=== PATIENT | female | born 1975 | race Caucasian/White ===

== ENCOUNTER 2016-07-28 12:51 | Emergency (ER) | payer MEDICARE, MEDICAID ==
[~2016-07-28] VITALS: Ht 160 cm; Wt 63.6 kg
[~2016-07-28 12:51] MED LIST: AMOXICILLIN 8751 TAB PO; DEPO-SUBQ104 MG/0.6 SC; LORTAB 5/500 501 TAB PO; NAPROSYN500 MG PO; NO HOME MEDICATIONS; NORCO 325 MG-51 TAB PO; PRENATAL1 TA2 PO; PROVERA 10MG10 MG PO; ROBAXIN 50500 MG/TAB PO; ROBAXIN 75750 MG/TAB PO; ULTRAM 50MG TAB50 MG PO; WELLBUTRIN 75MG75 MG PO; XANAX 0.5MG0.5 MG PO; ZOFRAN 4MG T4 MG/TAB PO
[2016-07-28 12:55] VITALS: BP 124/72; PULSE 84; TEMP 99.5
[2016-07-28] MEDS ORDERED: SEROQUEL 2525 MG/TAB PO (12:58)
== END 2016-07-28 13:55 | disposition home or self-care (01) ==
LOC: COL.ER 12:51
DX: S50.02XA Contusion of left elbow, initial encounter (principal); W00.0XXA Fall on same level due to ice and snow, initial encounter

== ENCOUNTER 2016-10-20 20:10 | Emergency (ER) | payer MEDICARE, MEDICAID ==
[~2016-10-20] VITALS: Ht 160 cm; Wt 65.9 kg
[~2016-10-20 20:10] MED LIST changes: +SEROQUEL 2525 MG/TAB PO
[2016-10-20 20:16] VITALS: BP 137/89; PULSE 90; TEMP 98.7
[2016-10-20] MEDS ORDERED: DEPAKOTE500 MG PO (20:19)
[2016-10-20] MEDS ORDERED: ESTRACE2 MG PO (20:19)
[2016-10-20] MEDS ORDERED: FLEXERIL 1010 MG/TAB PO (22:51)
== END 2016-10-20 22:58 | disposition home or self-care (01) ==
LOC: COL.ER 20:10
DX: M54.2 Cervicalgia (principal); M62.838 Other muscle spasm; J02.9 Acute pharyngitis, unspecified
CPT/HCPCS: J1885

== ENCOUNTER 2017-03-26 22:00 | Emergency (ER) | payer MEDICARE, MEDICAID ==
[~2017-03-26] VITALS: Ht 160 cm; Wt 64.5 kg
[~2017-03-26 22:00] MED LIST changes: +DEPAKOTE500 MG PO; +ESTRACE2 MG PO; +FLEXERIL 1010 MG/TAB PO
[2017-03-26 22:17] VITALS: BP 130/80; TEMP 97.9
[2017-03-27 01:00] VITALS: PULSE 79
== END 2017-03-27 01:02 | disposition home or self-care (01) ==
LOC: COL.ER 22:00
DX: M54.2 Cervicalgia (principal); M54.89 Other dorsalgia; G89.29 Other chronic pain; F31.9 Bipolar disorder, unspecified; F41.9 Anxiety disorder, unspecified; R42 Dizziness and giddiness
CPT/HCPCS: J1885

== ENCOUNTER 2017-04-01 12:49 | Emergency (ER) | payer MEDICARE, MEDICAID ==
[~2017-04-01] VITALS: Ht 160 cm; Wt 64.5 kg
[2017-04-01 12:57] VITALS: BP 130/82; TEMP 98.6
[2017-04-01] MEDS ORDERED: MULTI VITAMINS1 TAB PO (13:01)
[2017-04-01] MEDS ORDERED: PREDNISONE20 MG PO (14:22)
[2017-04-01 14:36] VITALS: PULSE 84
== END 2017-04-01 14:37 | disposition home or self-care (01) ==
LOC: COL.ER 12:49
DX: J98.01 Acute bronchospasm (principal); F17.210 Nicotine dependence, cigarettes, uncomplicated; Z90.710 Acquired absence of both cervix and uterus

== ENCOUNTER 2017-07-04 16:23 | Emergency (ER) | payer MEDICARE, MEDICAID ==
[~2017-07-04] VITALS: Ht 160 cm; Wt 65.9 kg
[~2017-07-04 16:23] MED LIST changes: +MULTI VITAMINS1 TAB PO; +PREDNISONE20 MG PO
[2017-07-04 16:26] VITALS: BP 129/75; TEMP 98.9
[2017-07-04] MEDS ORDERED: ZOLOFT 50MG50 MG PO (16:30)
[2017-07-04 18:32] LABS: BASO % 0.4 % (0.0-2.0); EOS # 0.2 (0.0-0.7); EOS % 2.8 % (0-4.0); GRAN # 4.3 (1.4-6.5); GRAN % 52.4 % (42.2-75.2); LYMPH # 3.2 (1.2-3.4); LYMPH % 38.7 % (20.0-51.0); MEAN CELL VOLUME 89 fl (80.0-100.0); MEAN CORPUSCULAR HEMOGLOBIN 30 pg (27.0-31.0); MEAN CORPUSCULAR HGB CONC 33 g/dl (33.0-37.0); MEAN PLATELET VOLUME 8.8 fl (7.4-10.4); MONO # 0.5 (0.1-0.6); MONO % 5.5 % (1.7-9.3); PLATELET COUNT 267 K/mm3 (130-400); RED BLOOD COUNT 4.74 M/mm3 (4.10-5.30); WHITE BLOOD COUNT 8.2 K/mm3 (4.8-10.8)
[2017-07-04 18:46] LABS: ADJUSTED CALCIUM 9.5 mg/dL (8.4-10.2); ALANINE AMINOTRANSFERASE 44 U/L (9-52); ALBUMIN 4.4 gm/dL (3.5-5.0); ALKALINE PHOSPHATASE 57 U/L (50-136); ANION GAP 9 mmol/L (7-16); BILIRUBIN,TOTAL 0.4 mg/dL (0.0-1.0); BLOOD UREA NITROGEN 13 mg/dL (7-17); CALCIUM 9.8 mg/dL (8.4-10.2); CARBON DIOXIDE 31 mmol/L (22-30); CHLORIDE 103 mmol/L (98-107); CREATININE, serum 0.56 mg/dL (0.52-1.25); GLUCOSE 95 mg/dL (74-106); LIPASE 81 U/L (23-300); POTASSIUM 4.1 mmol/L (3.4-5.0); SODIUM 142 mmol/L (137-145); TOTAL PROTEIN 7.4 gm/dL (6.4-8.2)
[2017-07-04 18:49] LABS: COLLECTION METHOD CLEAN CATCH
[2017-07-04 18:54] LABS: C-REACTIVE PROTEIN < 0.5 mg/dL (0.0-0.9)
[2017-07-04 19:02] LABS: INFLUENZA A NEGATIVE; INFLUENZA B NEGATIVE
[2017-07-04 19:03] LABS: AMORPHOUS CRYSTAL Present /uL; PH 7 (5-8); SQUAMOUS EPITHELIAL 0-2 /hpf; URINE APPEARANCE Turbid; URINE BACTERIA None Seen /hpf; URINE BILIRUBIN Negative (NEGATIVE); URINE BLOOD Negative (NEGATIVE); URINE COLOR Yellow; URINE GLUCOSE Negative (NEGATIVE); URINE KETONE Negative (NEGATIVE); URINE LEUKOCYTE ESTERASE Negative (NEGATIVE); URINE PROTEIN(semi-quant) Negative (NEGATIVE); URINE RBC 0-2 /hpf; URINE UROBILINOGEN Negative (NEGATIVE); URINE WBC None Seen /hpf
[2017-07-04] MEDS ORDERED: ZOFRAN ODT4 MG PO (19:25)
[2017-07-04 19:43] VITALS: PULSE 77
== END 2017-07-04 19:44 | disposition home or self-care (01) ==
LOC: COL.ER 16:23
PROVIDERS: Nurse Practitioner
DX: R10.11 Right upper quadrant pain (principal); R10.31 Right lower quadrant pain; F32.9 Major depressive disorder, single episode, unspecified; F17.210 Nicotine dependence, cigarettes, uncomplicated; Z90.710 Acquired absence of both cervix and uterus; Z90.89 Acquired absence of other organs

== ENCOUNTER 2017-08-11 05:24 | Emergency (ER) | payer MEDICARE, MEDICAID ==
[~2017-08-11] VITALS: Ht 160 cm; Wt 65.9 kg
[~2017-08-11 05:24] MED LIST changes: +ZOFRAN ODT4 MG PO; +ZOLOFT 50MG50 MG PO
[2017-08-11 05:29] VITALS: BP 142/84; PULSE 105; TEMP 100.8
[2017-08-11 06:40] LABS: INFLUENZA A NEGATIVE; INFLUENZA B POSITIVE
[2017-08-11] MEDS ORDERED: TESSALON P100 MG/CAP PO (07:07)
[2017-08-11] MEDS ORDERED: MUCINEX 60600 MG/TA1 PO (07:07)
[2017-08-11] MEDS ORDERED: ZOFRAN 4MG T4 MG/TAB PO (07:07)
== END 2017-08-11 07:57 | disposition home or self-care (01) ==
LOC: COL.ER 05:24
PROVIDERS: Emergency Medicine
DX: J10.1 Influenza due to other identified influenza virus with other respiratory manifestations (principal); Z90.710 Acquired absence of both cervix and uterus; Z90.89 Acquired absence of other organs; Z98.890 Other specified postprocedural states

== ENCOUNTER 2017-08-16 11:34 | Emergency (ER) | payer MEDICARE, MEDICAID ==
[~2017-08-16] VITALS: Ht 160 cm; Wt 65.9 kg
[~2017-08-16 11:34] MED LIST changes: +MUCINEX 60600 MG/TA1 PO; +TESSALON P100 MG/CAP PO
[2017-08-16 11:41] VITALS: BP 120/76; TEMP 99.3
[2017-08-16 12:11] LABS: COLLECTION METHOD CLEAN CATCH
[2017-08-16 12:16] LABS: MUCOUS Present /lpf; PH 7 (5-8); SQUAMOUS EPITHELIAL 0-2 /hpf; URINE APPEARANCE Clear; URINE BACTERIA None Seen /hpf; URINE BILIRUBIN Negative (NEGATIVE); URINE BLOOD Negative (NEGATIVE); URINE COLOR Yellow; URINE GLUCOSE Negative (NEGATIVE); URINE KETONE Negative (NEGATIVE); URINE LEUKOCYTE ESTERASE Negative (NEGATIVE); URINE NITRATE Negative (NEGATIVE); URINE PROTEIN(semi-quant) Negative (NEGATIVE); URINE RBC 0-2 /hpf; URINE UROBILINOGEN Negative (NEGATIVE)
[2017-08-16] MEDS ORDERED: ANTIVERT 12.512.5 MG PO (13:21)
[2017-08-16 13:33] VITALS: PULSE 74
== END 2017-08-16 13:34 | disposition home or self-care (01) ==
LOC: COL.ER 11:34
PROVIDERS: Physician Assistant
DX: J10.1 Influenza due to other identified influenza virus with other respiratory manifestations (principal); R42 Dizziness and giddiness; F17.210 Nicotine dependence, cigarettes, uncomplicated
CPT/HCPCS: J1885

== ENCOUNTER 2017-09-14 19:23 | Emergency (ER) | payer MEDICARE, MEDICAID ==
[~2017-09-14] VITALS: Ht 160 cm; Wt 63.6 kg
[~2017-09-14 19:23] MED LIST changes: +ANTIVERT 12.512.5 MG PO
[2017-09-14 19:31] VITALS: TEMP 98.9
[2017-09-14 20:43] VITALS: BP 135/77; PULSE 79
[2017-09-14] MEDS ORDERED: FLEXERIL 1010 MG/TAB PO (20:43)
== END 2017-09-14 20:44 | disposition home or self-care (01) ==
LOC: COL.ER 19:23
DX: M62.830 Muscle spasm of back (principal); M54.6 Pain in thoracic spine; G89.29 Other chronic pain; F41.9 Anxiety disorder, unspecified; F17.210 Nicotine dependence, cigarettes, uncomplicated; M41.9 Scoliosis, unspecified
CPT/HCPCS: J1885; J2360

== ENCOUNTER 2017-10-20 18:56 | Emergency (ER) | payer MEDICARE, MEDICAID ==
[~2017-10-20] VITALS: Wt 69.9 kg
[2017-10-20 19:27] VITALS: BP 148/64; TEMP 98
[2017-10-20] MEDS ORDERED: ZITHROMAX Z PA250 MG PO (19:51)
[2017-10-20 20:03] VITALS: PULSE 87
== END 2017-10-20 19:56 | disposition home or self-care (01) ==
LOC: COL.ER 18:56
DX: J40 Bronchitis, not specified as acute or chronic (principal); R07.89 Other chest pain; F17.210 Nicotine dependence, cigarettes, uncomplicated

== ENCOUNTER 2017-11-30 19:16 | Emergency (ER) | payer MEDICARE, MEDICAID ==
[~2017-11-30] VITALS: Ht 160 cm; Wt 70.0 kg
[~2017-11-30 19:16] MED LIST changes: +ZITHROMAX Z PA250 MG PO
[2017-11-30 19:21] VITALS: BP 137/81; TEMP 98.4
[2017-11-30] MEDS ORDERED: CLARITIN 1010 MG/TAB PO (19:38)
[2017-11-30] MEDS ORDERED: 00186-0370-20 IH (19:39)
[2017-11-30 20:00] LABS: COLLECTION METHOD CLEAN CATCH
[2017-11-30 20:05] LABS: BASO % 0.4 % (0.0-2.0); EOS # 0.3 (0.0-0.7); EOS % 2.6 % (0-4.0); GRAN # 5.5 (1.4-6.5); GRAN % 57.1 % (42.2-75.2); HEMATOCRIT 42.2 % (37.0-47.0); HEMOGLOBIN 14.4 g/dl (12.5-16.0); LYMPH # 3.3 (1.2-3.4); LYMPH % 34.5 % (20.0-51.0); MEAN CELL VOLUME 88 fl (80.0-100.0); MEAN CORPUSCULAR HEMOGLOBIN 30 pg (27.0-31.0); MEAN CORPUSCULAR HGB CONC 34 g/dl (33.0-37.0); MEAN PLATELET VOLUME 9.4 fl (7.4-10.4); MONO # 0.5 (0.1-0.6); MONO % 5.2 % (1.7-9.3); PLATELET COUNT 292 K/mm3 (130-400); RED BLOOD COUNT 4.82 M/mm3 (4.10-5.30); REDCELL DISTRIBUTION WIDTH-CV 12.3 % (11.5-14.5)
[2017-11-30 20:21] LABS: ALANINE AMINOTRANSFERASE 44 U/L (9-52); ALBUMIN 4.3 gm/dL (3.5-5.0); ALKALINE PHOSPHATASE 71 U/L (50-136); ANION GAP 11 mmol/L (7-16); AST,SGOT 36 U/L (15-37); BILIRUBIN,TOTAL 0.5 mg/dL (0.0-1.0); BLOOD UREA NITROGEN 17 mg/dL (7-17); CALCIUM 9.4 mg/dL (8.4-10.2); CARBON DIOXIDE 28 mmol/L (22-30); CHLORIDE 105 mmol/L (98-107); CREATININE, serum 0.58 mg/dL (0.52-1.25); GLUCOSE 92 mg/dL (74-106); LIPASE 86 U/L (23-300); PHOSPHOROUS 4.1 mg/dL (2.5-4.5); POTASSIUM 3.8 mmol/L (3.4-5.0); SODIUM 144 mmol/L (137-145); TOTAL PROTEIN 7.8 gm/dL (6.4-8.2)
[2017-11-30 20:28] LABS: BUDDING YEAST Present /hpf; PH 7 (5-8); SQUAMOUS EPITHELIAL 0-2 /hpf; URINE APPEARANCE Cloudy; URINE BACTERIA Rare /hpf; URINE BILIRUBIN Negative (NEGATIVE); URINE BLOOD Negative (NEGATIVE); URINE COLOR Yellow; URINE GLUCOSE Negative (NEGATIVE); URINE KETONE Negative (NEGATIVE); URINE LEUKOCYTE ESTERASE 2+ (NEGATIVE); URINE NITRATE Negative (NEGATIVE); URINE PROTEIN(semi-quant) Negative (NEGATIVE)
[2017-11-30 20:32] LABS: TROPONIN-I < 0.012 ng/mL (0.000-0.034)
[2017-11-30] MEDS ORDERED: CEFTIN500 MG PO (21:11)
[2017-11-30 21:40] VITALS: PULSE 85
== END 2017-11-30 21:40 | disposition home or self-care (01) ==
LOC: COL.ER 19:16
PROVIDERS: Emergency Medicine
DX: M94.0 Chondrocostal junction syndrome [Tietze] (principal); N39.0 Urinary tract infection, site not specified; F17.210 Nicotine dependence, cigarettes, uncomplicated; Z90.710 Acquired absence of both cervix and uterus; Z90.89 Acquired absence of other organs
CPT/HCPCS: J0696; J1885; J7030

== ENCOUNTER 2018-02-02 11:24 | Emergency (ER) | payer MEDICARE, MEDICAID ==
[~2018-02-02] VITALS: Ht 160 cm; Wt 72.7 kg
[~2018-02-02 11:24] MED LIST changes: +00186-0370-20 IH; +CEFTIN500 MG PO; +CLARITIN 1010 MG/TAB PO
[2018-02-02 11:38] VITALS: BP 121/75; TEMP 99.2
[2018-02-02] MEDS ORDERED: DEPAKOTE ER 50500 MG PO (11:45)
[2018-02-02] MEDS ORDERED: REXULTI2 MG PO (11:46)
[2018-02-02] MEDS ORDERED: AMOXICILLIN 50500 MG PO (12:15)
[2018-02-02] MEDS ORDERED: NORCO 325 MG-51 TAB PO (12:15)
[2018-02-02 12:24] VITALS: PULSE 86
== END 2018-02-02 12:26 | disposition home or self-care (01) ==
LOC: COL.ER 11:24
DX: K02.9 Dental caries, unspecified (principal); F17.210 Nicotine dependence, cigarettes, uncomplicated; Z90.89 Acquired absence of other organs; Z90.710 Acquired absence of both cervix and uterus; Z98.890 Other specified postprocedural states

== ENCOUNTER 2018-05-15 19:06 | Emergency (ER) | payer MEDICARE, MEDICAID ==
[~2018-05-15] VITALS: Ht 160 cm; Wt 72.7 kg
[~2018-05-15 19:06] MED LIST changes: +AMOXICILLIN 50500 MG PO; +DEPAKOTE ER 50500 MG PO; +REXULTI2 MG PO
[2018-05-15 19:17] VITALS: BP 122/85; TEMP 98.9
[2018-05-15 20:31] LABS: COLLECTION METHOD CLEAN CATCH
[2018-05-15 20:37] LABS: MUCOUS Present /lpf; PH 5 (5-8); URINE APPEARANCE Hazy; URINE BACTERIA Occasional /hpf; URINE BILIRUBIN Negative (NEGATIVE); URINE BLOOD Negative (NEGATIVE); URINE COLOR Yellow; URINE GLUCOSE Negative (NEGATIVE); URINE KETONE Negative (NEGATIVE); URINE LEUKOCYTE ESTERASE 2+ (NEGATIVE); URINE NITRATE Negative (NEGATIVE); URINE PROTEIN(semi-quant) Negative (NEGATIVE)
[2018-05-15 20:50] LABS: BASO % 0.5 % (0.0-2.0); EOS # 0.4 (0.0-0.7); EOS % 4.4 % (0-4.0); GRAN # 3.4 (1.4-6.5); GRAN % 42.5 % (42.2-75.2); HEMATOCRIT 38.2 % (37.0-47.0); HEMOGLOBIN 13.1 g/dl (12.5-16.0); LYMPH # 3.7 (1.2-3.4); LYMPH % 46.1 % (20.0-51.0); MEAN CELL VOLUME 88 fl (80.0-100.0); MEAN CORPUSCULAR HEMOGLOBIN 30 pg (27.0-31.0); MEAN CORPUSCULAR HGB CONC 34 g/dl (33.0-37.0); MEAN PLATELET VOLUME 9.2 fl (7.4-10.4); MONO # 0.5 (0.1-0.6); MONO % 6.4 % (1.7-9.3); PLATELET COUNT 229 K/mm3 (130-400); RED BLOOD COUNT 4.33 M/mm3 (4.10-5.30); REDCELL DISTRIBUTION WIDTH-CV 11.8 % (11.5-14.5)
[2018-05-15 21:00] LABS: BILIRUBIN,TOTAL 0.2 mg/dL (0.0-1.0); CALCIUM 8.9 mg/dL (8.4-10.2); CREATININE, serum 0.58 mg/dL (0.52-1.25); POTASSIUM 3.8 mmol/L (3.4-5.0); TOTAL PROTEIN 6.7 gm/dL (6.4-8.2)
[2018-05-15] MEDS ORDERED: MACROBID 1100 MG/CAP PO (21:53)
[2018-05-15 22:02] VITALS: PULSE 84
== END 2018-05-15 22:03 | disposition home or self-care (01) ==
LOC: COL.ER 19:06
PROVIDERS: Emergency Medicine
DX: R42 Dizziness and giddiness (principal); N39.0 Urinary tract infection, site not specified; Z79.899 Other long term (current) drug therapy

== ENCOUNTER 2018-07-18 22:15 | Emergency (ER) | payer MEDICARE, MEDICAID ==
[~2018-07-18] VITALS: Ht 160 cm; Wt 72.7 kg
[~2018-07-18 22:15] MED LIST changes: +MACROBID 1100 MG/CAP PO
[2018-07-18 22:19] VITALS: TEMP 97.8
[2018-07-18 22:58] LABS: COLLECTION METHOD CLEAN CATCH
[2018-07-18 23:17] LABS: MUCOUS Present /lpf; PH 5 (5-8); URINE APPEARANCE Cloudy; URINE BACTERIA None Seen /hpf; URINE BILIRUBIN Negative (NEGATIVE); URINE BLOOD 1+ (NEGATIVE); URINE COLOR Yellow; URINE GLUCOSE Negative (NEGATIVE); URINE KETONE Negative (NEGATIVE); URINE LEUKOCYTE ESTERASE 3+ (NEGATIVE); URINE NITRATE Negative (NEGATIVE); URINE PROTEIN(semi-quant) 1+ (NEGATIVE)
[2018-07-19 00:17] LABS: COLLECTION METHOD CLEAN CATCH
[2018-07-19 00:28] LABS: MUCOUS Present /lpf; PH 5 (5-8); URINE APPEARANCE Hazy; URINE BACTERIA Rare /hpf; URINE BILIRUBIN Negative (NEGATIVE); URINE BLOOD Negative (NEGATIVE); URINE CALCIUM OXALATE CRYSTAL Present /hpf; URINE COLOR Yellow; URINE GLUCOSE Negative (NEGATIVE); URINE KETONE Negative (NEGATIVE); URINE LEUKOCYTE ESTERASE 2+ (NEGATIVE); URINE NITRATE Negative (NEGATIVE); URINE PROTEIN(semi-quant) Negative (NEGATIVE); URINE UROBILINOGEN Negative (NEGATIVE)
[2018-07-19 00:37] LABS: BASO % 0.3 % (0.0-2.0); EOS # 0.3 (0.0-0.7); EOS % 3.4 % (0-4.0); GRAN # 4.3 (1.4-6.5); GRAN % 47.2 % (42.2-75.2); HEMATOCRIT 39.3 % (37.0-47.0); HEMOGLOBIN 13.2 g/dl (12.5-16.0); LYMPH % 43.6 % (20.0-51.0); MEAN CELL VOLUME 89 fl (80.0-100.0); MEAN CORPUSCULAR HEMOGLOBIN 30 pg (27.0-31.0); MEAN CORPUSCULAR HGB CONC 34 g/dl (33.0-37.0); MEAN PLATELET VOLUME 9.3 fl (7.4-10.4); MONO # 0.5 (0.1-0.6); MONO % 5.3 % (1.7-9.3); PLATELET COUNT 275 K/mm3 (130-400); RED BLOOD COUNT 4.42 M/mm3 (4.10-5.30); REDCELL DISTRIBUTION WIDTH-CV 11.9 % (11.5-14.5)
[2018-07-19 00:43] LABS: ALANINE AMINOTRANSFERASE 18 U/L (9-52); ALBUMIN 3.9 gm/dL (3.5-5.0); ALKALINE PHOSPHATASE 50 U/L (50-136); ANION GAP 3 mmol/L (7-16); AST,SGOT 20 U/L (15-37); BILIRUBIN,TOTAL 0.3 mg/dL (0.0-1.0); BLOOD UREA NITROGEN 10 mg/dL (7-17); CALCIUM 9.1 mg/dL (8.4-10.2); CARBON DIOXIDE 31 mmol/L (22-30); CHLORIDE 107 mmol/L (98-107); CREATININE, serum 0.54 mg/dL (0.52-1.25); GLUCOSE 97 mg/dL (74-106); POTASSIUM 3.7 mmol/L (3.4-5.0); SODIUM 141 mmol/L (137-145); TOTAL PROTEIN 6.5 gm/dL (6.4-8.2)
[2018-07-19 00:51] LABS: C-REACTIVE PROTEIN < 0.5 mg/dL (0.0-0.9)
[2018-07-19] MEDS ORDERED: OMNICEF 300MG300 MG PO (03:22)
[2018-07-19 03:38] VITALS: BP 110/72; PULSE 76
== END 2018-07-19 03:48 | disposition home or self-care (01) ==
LOC: COL.ER 22:15
PROVIDERS: Physician Assistant
DX: N30.00 Acute cystitis without hematuria (principal); M79.18 Myalgia, other site; D18.03 Hemangioma of intra-abdominal structures; R91.1 Solitary pulmonary nodule; F17.210 Nicotine dependence, cigarettes, uncomplicated; G47.00 Insomnia, unspecified
CPT/HCPCS: A4216; J0696; J1885; J7030; Q9967

== ENCOUNTER 2018-09-05 13:55 | Emergency (ER) | payer MEDICARE, MEDICAID | END 2018-09-05 16:52 | disposition home or self-care (01) | LOC: COL.ER 13:55 | DX: M54.6 Pain in thoracic spine (principal); M62.830 Muscle spasm of back; F31.9 Bipolar disorder, unspecified; F41.9 Anxiety disorder, unspecified; F17.210 Nicotine dependence, cigarettes, uncomplicated; Z90.89 Acquired absence of other organs; Z98.890 Other specified postprocedural states ==

== ENCOUNTER 2018-09-30 11:40 | Emergency (ER) | payer MEDICARE, MEDICAID ==
[~2018-09-30] VITALS: Ht 160 cm; Wt 68.2 kg
[~2018-09-30 11:40] MED LIST changes: +OMNICEF 300MG300 MG PO
[2018-09-30 11:52] VITALS: TEMP 98.7
[2018-09-30 13:38] LABS: COLLECTION METHOD CLEAN CATCH
[2018-09-30 13:51] LABS: AMORPHOUS CRYSTAL Present /uL; MUCOUS Present /lpf; PH 7 (5-8); URINE APPEARANCE Cloudy; URINE BACTERIA Rare /hpf; URINE BILIRUBIN Negative (NEGATIVE); URINE BLOOD Negative (NEGATIVE); URINE COLOR Yellow; URINE GLUCOSE Negative (NEGATIVE); URINE KETONE Negative (NEGATIVE); URINE LEUKOCYTE ESTERASE Negative (NEGATIVE); URINE NITRATE Negative (NEGATIVE); URINE PROTEIN(semi-quant) Negative (NEGATIVE)
[2018-09-30 13:53] LABS: BASO % 0.3 % (0.0-2.0); EOS # 0.1 (0.0-0.7); EOS % 1.2 % (0-4.0); GRAN # 6.6 (1.4-6.5); GRAN % 67.6 % (42.2-75.2); HEMATOCRIT 40.3 % (37.0-47.0); HEMOGLOBIN 13.5 g/dl (12.5-16.0); LYMPH # 2.4 (1.2-3.4); LYMPH % 24.5 % (20.0-51.0); MEAN CELL VOLUME 89 fl (80.0-100.0); MEAN CORPUSCULAR HEMOGLOBIN 30 pg (27.0-31.0); MEAN CORPUSCULAR HGB CONC 34 g/dl (33.0-37.0); MEAN PLATELET VOLUME 9.1 fl (7.4-10.4); MONO # 0.6 (0.1-0.6); MONO % 6.1 % (1.7-9.3); PLATELET COUNT 283 K/mm3 (130-400); RED BLOOD COUNT 4.52 M/mm3 (4.10-5.30); REDCELL DISTRIBUTION WIDTH-CV 11.9 % (11.5-14.5)
[2018-09-30] MEDS ORDERED: ESTRACE 1MG1 MG/TAB PO (13:59)
[2018-09-30 14:05] LABS: ALBUMIN 4.1 gm/dL (3.5-5.0); BILIRUBIN,TOTAL 0.5 mg/dL (0.0-1.0); C-REACTIVE PROTEIN 2.4 mg/dL (0.0-0.9); CALCIUM 9.6 mg/dL (8.4-10.2); CREATININE, serum 0.52 mg/dL (0.52-1.25); POTASSIUM 4.2 mmol/L (3.4-5.0); TOTAL PROTEIN 7.3 gm/dL (6.4-8.2)
[2018-09-30] MEDS ORDERED: PROAIR HFA0.09 MG/AC IH (14:26)
[2018-09-30 14:55] VITALS: BP 109/59; PULSE 92
== END 2018-09-30 14:55 | disposition home or self-care (01) ==
LOC: COL.ER 11:40
PROVIDERS: Physician Assistant
DX: R05 Cough (principal); R50.9 Fever, unspecified; F17.210 Nicotine dependence, cigarettes, uncomplicated; Z90.710 Acquired absence of both cervix and uterus; Z98.890 Other specified postprocedural states; Z90.89 Acquired absence of other organs
CPT/HCPCS: J1885; J2405; J7030

== ENCOUNTER 2018-10-22 21:13 | Emergency (ER) | payer MEDICARE, MEDICAID ==
[~2018-10-22] VITALS: Ht 160 cm; Wt 63.2 kg
[~2018-10-22 21:13] MED LIST changes: +ESTRACE 1MG1 MG/TAB PO; +PROAIR HFA0.09 MG/AC IH
[2018-10-22 21:19] VITALS: TEMP 98.4
[2018-10-22] MEDS ORDERED: ZOFRAN ODT4 MG PO (21:22)
[2018-10-22 22:05] LABS: BASO % 0.3 % (0.0-2.0); EOS # 0.2 (0.0-0.7); EOS % 2.1 % (0-4.0); GRAN # 5.1 (1.4-6.5); GRAN % 53.4 % (42.2-75.2); HEMATOCRIT 39.8 % (37.0-47.0); HEMOGLOBIN 13.4 g/dl (12.5-16.0); LYMPH # 3.5 (1.2-3.4); MEAN CELL VOLUME 89 fl (80.0-100.0); MEAN CORPUSCULAR HEMOGLOBIN 30 pg (27.0-31.0); MEAN CORPUSCULAR HGB CONC 34 g/dl (33.0-37.0); MEAN PLATELET VOLUME 9.1 fl (7.4-10.4); MONO # 0.7 (0.1-0.6); MONO % 6.8 % (1.7-9.3); PLATELET COUNT 282 K/mm3 (130-400); RED BLOOD COUNT 4.48 M/mm3 (4.10-5.30); REDCELL DISTRIBUTION WIDTH-CV 11.9 % (11.5-14.5)
[2018-10-22 22:17] LABS: BILIRUBIN,TOTAL 0.2 mg/dL (0.0-1.0); CALCIUM 9.4 mg/dL (8.4-10.2); CREATININE, serum 0.61 (0.52-1.25); POTASSIUM 3.7 mmol/L (3.4-5.0); TOTAL PROTEIN 7.2 gm/dL (6.4-8.2)
[2018-10-22 22:49] VITALS: BP 105/68; PULSE 75
== END 2018-10-22 23:01 | disposition home or self-care (01) ==
LOC: COL.ER 21:13
PROVIDERS: Emergency Medicine
DX: R10.11 Right upper quadrant pain (principal); Z90.710 Acquired absence of both cervix and uterus; Z90.89 Acquired absence of other organs
CPT/HCPCS: J0780; J1170; J7030

== ENCOUNTER 2018-12-05 16:49 | Emergency (ER) | payer MEDICARE, MEDICAID ==
[~2018-12-05] VITALS: Ht 157.5 cm; Wt 63.6 kg
[2018-12-05 16:54] VITALS: BP 130/87; PULSE 88; TEMP 98.8
== END 2018-12-05 18:16 | disposition home or self-care (01) ==
LOC: COL.ER 16:49
DX: G47.00 Insomnia, unspecified (principal); F31.9 Bipolar disorder, unspecified; F17.210 Nicotine dependence, cigarettes, uncomplicated; Z90.49 Acquired absence of other specified parts of digestive tract

== ENCOUNTER 2018-12-25 21:54 | Emergency (ER) | payer MEDICARE, MEDICAID ==
[~2018-12-25] VITALS: Ht 160 cm; Wt 63.6 kg
[2018-12-25 22:03] VITALS: TEMP 98.5
[2018-12-25] MEDS ORDERED: ROBAXIN 75750 MG/TAB PO (23:00)
[2018-12-25 23:27] VITALS: BP 119/79; PULSE 94
== END 2018-12-25 23:27 | disposition home or self-care (01) ==
LOC: COL.ER 21:54
DX: G89.29 Other chronic pain (principal); M54.2 Cervicalgia; G47.00 Insomnia, unspecified; F17.210 Nicotine dependence, cigarettes, uncomplicated; F41.9 Anxiety disorder, unspecified; F32.9 Major depressive disorder, single episode, unspecified
CPT/HCPCS: J1885

== ENCOUNTER 2019-01-11 17:28 | Emergency (ER) | payer MEDICARE, MEDICAID | END 2019-01-11 17:40 | disposition left against medical advice (07) | LOC: COL.ER 17:28 | DX: Z72.9 Problem related to lifestyle, unspecified (principal) ==

== ENCOUNTER 2019-01-27 20:13 | Emergency (ER) | payer MEDICARE, MEDICAID ==
[~2019-01-27] VITALS: Ht 160 cm; Wt 63.6 kg
[2019-01-27 20:19] VITALS: BP 137/90; TEMP 98.4
[2019-01-27] MEDS ORDERED: DEPAKOTE ER 25250 MG PO (20:25)
[2019-01-27] MEDS ORDERED: MOBIC15 MG PO (20:56)
[2019-01-27] MEDS ORDERED: ZITHROMAX Z PA250 MG PO (20:56)
[2019-01-27 21:54] VITALS: PULSE 88
== END 2019-01-27 21:54 | disposition home or self-care (01) ==
LOC: COL.ER 20:13
DX: J20.9 Acute bronchitis, unspecified (principal); M54.2 Cervicalgia; G89.29 Other chronic pain; M54.9 Dorsalgia, unspecified; F17.210 Nicotine dependence, cigarettes, uncomplicated

== ENCOUNTER 2019-04-07 19:44 | Emergency (ER) | payer MEDICARE, MEDICAID ==
[~2019-04-07] VITALS: Ht 160 cm; Wt 63.2 kg
[~2019-04-07 19:44] MED LIST changes: +ANTIVERT 25MG25 MG PO; +DEPAKOTE ER 25250 MG PO; +MOBIC15 MG PO; +ZOLOFT 25MG25 MG PO
[2019-04-07 19:46] VITALS: BP 127/71; TEMP 98.2
[2019-04-07] MEDS ORDERED: FLEXERIL 1010 MG/TAB PO (20:28)
[2019-04-07 20:59] VITALS: PULSE 67
== END 2019-04-07 21:00 | disposition home or self-care (01) ==
LOC: COL.ER 19:44
DX: M54.2 Cervicalgia (principal); G89.29 Other chronic pain; F17.210 Nicotine dependence, cigarettes, uncomplicated
CPT/HCPCS: J1885; J2060

== ENCOUNTER 2019-05-20 16:42 | Emergency (ER) | payer MEDICARE, MEDICAID ==
[~2019-05-20] VITALS: Ht 160 cm; Wt 63.2 kg
[2019-05-20 16:49] VITALS: BP 118/80; TEMP 98.3
[2019-05-20 18:04] LABS: COLLECTION METHOD CLEAN CATCH
[2019-05-20 18:18] LABS: MUCOUS Present /lpf; PH 6 (5-8); SQUAMOUS EPITHELIAL 0-2 /hpf; URINE APPEARANCE Clear; URINE BACTERIA None Seen /hpf; URINE BILIRUBIN Negative (NEGATIVE); URINE BLOOD Negative (NEGATIVE); URINE COLOR Yellow; URINE GLUCOSE Negative (NEGATIVE); URINE KETONE Negative (NEGATIVE); URINE LEUKOCYTE ESTERASE Trace (NEGATIVE); URINE NITRATE Negative (NEGATIVE); URINE PROTEIN(semi-quant) Negative (NEGATIVE); URINE UROBILINOGEN Negative (NEGATIVE)
[2019-05-20 19:06] VITALS: PULSE 78
== END 2019-05-20 19:06 | disposition home or self-care (01) ==
LOC: COL.ER 16:42
PROVIDERS: Physician Assistant
DX: R51 Headache (principal); F31.9 Bipolar disorder, unspecified; F17.210 Nicotine dependence, cigarettes, uncomplicated; Z90.710 Acquired absence of both cervix and uterus; Z90.49 Acquired absence of other specified parts of digestive tract; Z90.89 Acquired absence of other organs
CPT/HCPCS: J1885

== ENCOUNTER 2019-05-27 16:49 | Emergency (ER) | payer MEDICARE, MEDICAID ==
[~2019-05-27] VITALS: Ht 160 cm; Wt 63.6 kg
[2019-05-27 17:03] VITALS: TEMP 98.6
[2019-05-27 18:45] LABS: BASO % 0.5 % (0.0-2.0); EOS # 0.2 (0.0-0.7); EOS % 2.5 % (0-4.0); GRAN # 3.3 (1.4-6.5); GRAN % 41.1 % (42.2-75.2); HEMOGLOBIN 14.9 g/dl (12.5-16.0); LYMPH % 49.7 % (20.0-51.0); MEAN CELL VOLUME 90 fl (80.0-100.0); MEAN CORPUSCULAR HEMOGLOBIN 30 pg (27.0-31.0); MEAN CORPUSCULAR HGB CONC 33 g/dl (33.0-37.0); MEAN PLATELET VOLUME 9.3 fl (7.4-10.4); MONO # 0.5 (0.1-0.6); PLATELET COUNT 256 K/mm3 (130-400); RED BLOOD COUNT 4.98 M/mm3 (4.10-5.30); REDCELL DISTRIBUTION WIDTH-CV 12.3 % (11.5-14.5)
[2019-05-27 18:53] LABS: ALANINE AMINOTRANSFERASE 25 U/L (9-52); ALBUMIN 4.8 gm/dL (3.5-5.0); ALKALINE PHOSPHATASE 65 U/L (50-136); ANION GAP 9 mmol/L (7-16); AST,SGOT 40 U/L (15-37); BILIRUBIN,TOTAL 0.3 mg/dL (0.0-1.0); BLOOD UREA NITROGEN 11 mg/dL (7-17); CALCIUM 9.7 mg/dL (8.4-10.2); CARBON DIOXIDE 31 mmol/L (22-30); CHLORIDE 104 mmol/L (98-107); CREATININE, serum 0.48 (0.52-1.25); GLUCOSE 70 mg/dL (74-106); SODIUM 143 mmol/L (137-145); TOTAL PROTEIN 8.1 gm/dL (6.4-8.2)
[2019-05-27 18:57] LABS: C-REACTIVE PROTEIN < 0.5 mg/dL (0.0-0.9)
[2019-05-27] MEDS ORDERED: FLEXERIL5 MG PO (19:41)
[2019-05-27] MEDS ORDERED: ANTIVERT 12.512.5 MG PO (19:41)
[2019-05-27 20:00] VITALS: BP 110/75; PULSE 79
== END 2019-05-27 20:00 | disposition home or self-care (01) ==
LOC: COL.ER 16:49
PROVIDERS: Nurse Practitioner
DX: R51 Headache (principal); G89.29 Other chronic pain; M54.2 Cervicalgia; R42 Dizziness and giddiness; F31.9 Bipolar disorder, unspecified; F41.9 Anxiety disorder, unspecified; F17.210 Nicotine dependence, cigarettes, uncomplicated
CPT/HCPCS: J1200; J1885; J2765; J7030

== ENCOUNTER 2019-07-28 10:11 | Emergency (ER) | payer MEDICARE, MEDICAID ==
[~2019-07-28] VITALS: Ht 160 cm; Wt 65.0 kg
[~2019-07-28 10:11] MED LIST changes: +FLEXERIL5 MG PO
[2019-07-28 10:20] VITALS: BP 108/61; PULSE 78; TEMP 98.5
== END 2019-07-28 11:46 | disposition left against medical advice (07) ==
LOC: COL.ER 10:11
DX: G43.909 Migraine, unspecified, not intractable, without status migrainosus (principal)

== ENCOUNTER 2019-08-19 18:38 | Emergency (ER) | payer MEDICARE, MEDICAID ==
[~2019-08-19] VITALS: Ht 160 cm; Wt 63.6 kg
[2019-08-19 18:57] VITALS: BP 134/73; TEMP 97.8
[2019-08-19 22:00] VITALS: PULSE 79
== END 2019-08-19 22:00 | disposition home or self-care (01) ==
LOC: COL.ER 18:38
DX: F41.9 Anxiety disorder, unspecified (principal); R51 Headache; M54.2 Cervicalgia; F17.210 Nicotine dependence, cigarettes, uncomplicated
CPT/HCPCS: J1200; J1885; J2550

== ENCOUNTER 2019-09-07 22:09 | Emergency (ER) | payer MEDICARE, MEDICAID ==
[~2019-09-07] VITALS: Ht 160 cm; Wt 63.6 kg
[2019-09-07 22:14] VITALS: BP 132/80; TEMP 97.2
[2019-09-07 22:37] LABS: STREP SCREEN NEGATIVE
[2019-09-07] MEDS ORDERED: TAMIFLU 75MG75 MG PO (23:35)
[2019-09-07 23:45] VITALS: PULSE 73
== END 2019-09-07 23:45 | disposition home or self-care (01) ==
LOC: COL.ER 22:09
PROVIDERS: Nurse Practitioner
DX: J06.9 Acute upper respiratory infection, unspecified (principal); F32.9 Major depressive disorder, single episode, unspecified; F41.9 Anxiety disorder, unspecified; J45.909 Unspecified asthma, uncomplicated; F17.210 Nicotine dependence, cigarettes, uncomplicated

== ENCOUNTER 2019-09-26 14:47 | Emergency (ER) | payer MEDICARE, MEDICAID ==
[~2019-09-26] VITALS: Ht 160 cm; Wt 63.6 kg
[~2019-09-26 14:47] MED LIST changes: +TAMIFLU 75MG75 MG PO
[2019-09-26 14:55] VITALS: BP 125/67; TEMP 97.9
[2019-09-26 15:58] VITALS: PULSE 71
== END 2019-09-26 15:58 | disposition home or self-care (01) ==
LOC: COL.ER 14:47
DX: G89.29 Other chronic pain (principal); M54.2 Cervicalgia; F31.9 Bipolar disorder, unspecified; F41.9 Anxiety disorder, unspecified; F17.210 Nicotine dependence, cigarettes, uncomplicated
CPT/HCPCS: J1885

== ENCOUNTER 2019-11-19 22:05 | Emergency (ER) | payer MEDICARE, MEDICAID ==
[~2019-11-19] VITALS: Ht 160 cm; Wt 63.6 kg
[2019-11-19 23:04] VITALS: TEMP 98
[2019-11-19] MEDS ORDERED: MINIPRESS 1M1 MG/CAP PO (23:09)
[2019-11-20 00:06] LABS: BASO % 0.4 % (0.0-2.0); EOS # 0.2 (0.0-0.7); EOS % 2.1 % (0-4.0); GRAN # 3.2 (1.4-6.5); GRAN % 42.2 % (42.2-75.2); HEMATOCRIT 40.4 % (37.0-47.0); HEMOGLOBIN 13.2 g/dl (12.5-16.0); LYMPH # 3.6 (1.2-3.4); LYMPH % 47.3 % (20.0-51.0); MEAN CELL VOLUME 91 fl (80.0-100.0); MEAN CORPUSCULAR HEMOGLOBIN 30 pg (27.0-31.0); MEAN CORPUSCULAR HGB CONC 33 g/dl (33.0-37.0); MEAN PLATELET VOLUME 9.6 fl (7.4-10.4); MONO # 0.6 (0.1-0.6); MONO % 7.7 % (1.7-9.3); PLATELET COUNT 231 K/mm3 (130-400); RED BLOOD COUNT 4.42 M/mm3 (4.10-5.30); REDCELL DISTRIBUTION WIDTH-CV 12.2 % (11.5-14.5)
[2019-11-20 00:07] LABS: COLLECTION METHOD CLEAN CATCH
[2019-11-20 00:14] LABS: MUCOUS Present /lpf; PH 6 (5-8); SQUAMOUS EPITHELIAL 0-2 /hpf; URINE APPEARANCE Hazy; URINE BACTERIA None Seen /hpf; URINE BILIRUBIN Negative (NEGATIVE); URINE BLOOD Negative (NEGATIVE); URINE COLOR Yellow; URINE GLUCOSE Negative (NEGATIVE); URINE KETONE Negative (NEGATIVE); URINE LEUKOCYTE ESTERASE 2+ (NEGATIVE); URINE NITRATE Negative (NEGATIVE); URINE PROTEIN(semi-quant) Negative (NEGATIVE)
[2019-11-20 00:27] LABS: ALBUMIN 4.1 gm/dL (3.5-5.0); BILIRUBIN,TOTAL 0.3 mg/dL (0.0-1.0); CREATININE, serum 0.51 (0.52-1.25); TOTAL PROTEIN 6.8 gm/dL (6.4-8.2)
[2019-11-20] MEDS ORDERED: CEFTIN 250250 MG/TAB PO (00:59)
[2019-11-20 01:17] VITALS: BP 100/70; PULSE 84
== END 2019-11-20 01:22 | disposition home or self-care (01) ==
LOC: COL.ER 22:05
PROVIDERS: Nurse Practitioner
DX: G89.29 Other chronic pain (principal); M54.2 Cervicalgia; N39.0 Urinary tract infection, site not specified; F31.9 Bipolar disorder, unspecified; F41.9 Anxiety disorder, unspecified; F17.210 Nicotine dependence, cigarettes, uncomplicated; Z98.890 Other specified postprocedural states; Z90.89 Acquired absence of other organs

== ENCOUNTER 2019-12-18 01:32 | Emergency (ER) | payer MEDICARE, MEDICAID ==
[~2019-12-18 01:32] MED LIST changes: +CEFTIN 250250 MG/TAB PO; +MINIPRESS 1M1 MG/CAP PO
[2019-12-18 01:53] VITALS: BP 124/83; PULSE 73; TEMP 97.5
== END 2019-12-18 03:52 | disposition home or self-care (01) ==
LOC: COL.ER 01:32
DX: M54.2 Cervicalgia (principal); G89.29 Other chronic pain; F31.9 Bipolar disorder, unspecified; G47.00 Insomnia, unspecified; F17.210 Nicotine dependence, cigarettes, uncomplicated
CPT/HCPCS: J1885

== ENCOUNTER 2020-01-17 15:19 | Emergency (ER) | payer MEDICARE, MEDICAID ==
[~2020-01-17] VITALS: Ht 160 cm; Wt 68.2 kg
[2020-01-17 15:26] VITALS: BP 128/87; TEMP 98.3
[2020-01-17] MEDS ORDERED: LIDODERM 5% PATC1 EA TP (18:09)
[2020-01-17] MEDS ORDERED: FLEXERIL 1010 MG/TAB PO (18:09)
[2020-01-17] MEDS ORDERED: NORCO 325 MG-51 TAB PO (18:10)
[2020-01-17 18:35] VITALS: PULSE 83
== END 2020-01-17 18:35 | disposition home or self-care (01) ==
LOC: COL.ER 15:19
DX: S06.0X0A Concussion without loss of consciousness, initial encounter (principal); S16.1XXA Strain of muscle, fascia and tendon at neck level, initial encounter; F31.9 Bipolar disorder, unspecified; F17.210 Nicotine dependence, cigarettes, uncomplicated; W01.198A Fall on same level from slipping, tripping and stumbling with subsequent striking against other object, initial encounter; Y92.009 Unspecified place in unspecified non-institutional (private) residence as the place of occurrence of the external cause

== ENCOUNTER 2020-02-24 16:26 | Emergency (ER) | payer OTHER ==
[~2020-02-24] VITALS: Ht 160 cm; Wt 68.2 kg
[~2020-02-24 16:26] MED LIST changes: +LIDODERM 5% PATC1 EA TP
[2020-02-24 16:32] VITALS: BP 137/91; TEMP 98
[2020-02-24] MEDS ORDERED: DEPAKOTE500 MG PO (17:20)
[2020-02-24] MEDS ORDERED: SEROQUEL 2525 MG/TAB PO (17:20)
[2020-02-24] MEDS ORDERED: VALIUM 5MG T5 MG/TAB PO (18:03)
[2020-02-24] MEDS ORDERED: ZOFRAN ODT4 MG PO (18:03)
[2020-02-24] MEDS ORDERED: NORCO 325 MG-51 TAB PO (18:03)
[2020-02-24 18:33] VITALS: PULSE 71
== END 2020-02-24 18:34 | disposition home or self-care (01) ==
LOC: COL.ER 16:26
DX: S13.4XXA Sprain of ligaments of cervical spine, initial encounter (principal); S23.3XXA Sprain of ligaments of thoracic spine, initial encounter; F31.9 Bipolar disorder, unspecified; R40.2412 Glasgow coma scale score 13-15, at arrival to emergency department; V43.52XA Car driver injured in collision with other type car in traffic accident, initial encounter
CPT/HCPCS: J1885; J3360

== ENCOUNTER 2020-03-16 09:36 | Emergency (ER) | payer SELFPAY ==
[~2020-03-16] VITALS: Ht 160 cm; Wt 69.1 kg
[~2020-03-16 09:36] MED LIST changes: +VALIUM 5MG T5 MG/TAB PO
[2020-03-16 10:02] VITALS: BP 118/86; TEMP 98.1
[2020-03-16 10:35] LABS: COLLECTION METHOD CLEAN CATCH
[2020-03-16 10:54] LABS: MUCOUS Present /lpf; PH 7 (5-8); URINE APPEARANCE Hazy; URINE BILIRUBIN Negative (NEGATIVE); URINE BLOOD Negative (NEGATIVE); URINE COLOR Amber; URINE GLUCOSE Negative (NEGATIVE); URINE KETONE Negative (NEGATIVE); URINE LEUKOCYTE ESTERASE 2+ (NEGATIVE); URINE NITRATE Positive (NEGATIVE); URINE PROTEIN(semi-quant) Negative (NEGATIVE); URINE RBC 0-2 /hpf; URINE UROBILINOGEN Negative (NEGATIVE)
[2020-03-16 11:02] LABS: URINE BACTERIA Many /hpf
[2020-03-16] MEDS ORDERED: MACROBID 1100 MG/CAP PO (11:46)
[2020-03-16 12:02] VITALS: PULSE 75
== END 2020-03-16 12:02 | disposition home or self-care (01) ==
LOC: COL.ER 09:36
PROVIDERS: Physician Assistant
DX: N39.0 Urinary tract infection, site not specified (principal); M54.2 Cervicalgia; F31.9 Bipolar disorder, unspecified
CPT/HCPCS: J1885

== ENCOUNTER 2020-04-23 16:27 | Emergency (ER) | payer SELFPAY ==
[~2020-04-23] VITALS: Ht 160 cm; Wt 68.2 kg
[~2020-04-23 16:27] MED LIST changes: -MINIPRESS 1M1 MG/CAP PO; +MINIPRESS2 MG PO
[2020-04-23 16:33] VITALS: TEMP 98.5
[2020-04-23] MEDS ORDERED: ATARAX 25MG25 MG/TAB PO ×2 (16:39→16:46)
[2020-04-23] MEDS ORDERED: FLEXERIL 1010 MG/TAB PO (16:56)
[2020-04-23 17:05] VITALS: BP 120/84; PULSE 87
== END 2020-04-23 17:05 | disposition home or self-care (01) ==
LOC: COL.ER 16:27
DX: M54.6 Pain in thoracic spine (principal); M54.2 Cervicalgia; F31.9 Bipolar disorder, unspecified; F41.9 Anxiety disorder, unspecified; F17.210 Nicotine dependence, cigarettes, uncomplicated; Z90.49 Acquired absence of other specified parts of digestive tract
CPT/HCPCS: J1885

== ENCOUNTER → 2020-06-25 | Emergency (ER) | payer MEDICARE ==
[~2020-06-25] VITALS: Ht 160 cm; Wt 68.2 kg
[~2020-06-25] MED LIST changes: +ATARAX 25MG25 MG/TAB PO
[2020-06-25 23:29] LABS: COLLECTION METHOD CLEAN CATCH
[2020-06-26] LABS: MUCOUS Present /lpf; PH 5 (5-8); URINE APPEARANCE Hazy; URINE BACTERIA None Seen /hpf; URINE BILIRUBIN Negative (NEGATIVE); URINE BLOOD Negative (NEGATIVE); URINE COLOR Yellow; URINE GLUCOSE Negative (NEGATIVE); URINE KETONE Negative (NEGATIVE); URINE LEUKOCYTE ESTERASE Negative (NEGATIVE); URINE NITRATE Negative (NEGATIVE); URINE PROTEIN(semi-quant) Negative (NEGATIVE); URINE UROBILINOGEN Negative (NEGATIVE)
[2020-06-26 00:14] VITALS: TEMP 97.8
[2020-06-26 00:16] LABS: BASO % 0.5 % (0.0-2.0); EOS # 0.2 (0.0-0.7); EOS % 1.9 % (0-4.0); GRAN # 3.7 (1.4-6.5); GRAN % 45.4 % (42.2-75.2); HEMATOCRIT 39.7 % (37.0-47.0); HEMOGLOBIN 13.1 g/dl (12.5-16.0); LYMPH # 3.9 (1.2-3.4); LYMPH % 47.4 % (20.0-51.0); MEAN CELL VOLUME 90 fl (80.0-100.0); MEAN CORPUSCULAR HEMOGLOBIN 30 pg (27.0-31.0); MEAN CORPUSCULAR HGB CONC 33 g/dl (33.0-37.0); MEAN PLATELET VOLUME 9.2 fl (7.4-10.4); MONO # 0.4 (0.1-0.6); MONO % 4.6 % (1.7-9.3); PLATELET COUNT 234 K/mm3 (130-400); RED BLOOD COUNT 4.39 M/mm3 (4.10-5.30); REDCELL DISTRIBUTION WIDTH-CV 11.9 % (11.5-14.5)
[2020-06-26 00:34] LABS: ALANINE AMINOTRANSFERASE 14 U/L (4-34); ALKALINE PHOSPHATASE 51 U/L (50-136); ANION GAP 6 mmol/L (7-16); AST,SGOT 24 U/L (15-37); BILIRUBIN,TOTAL 0.3 mg/dL (0.0-1.0); BLOOD UREA NITROGEN 11 mg/dL (7-17); CALCIUM 9.3 mg/dL (8.4-10.2); CARBON DIOXIDE 29 mmol/L (22-30); CHLORIDE 107 mmol/L (98-107); CREATININE, serum 0.55 (0.52-1.25); GLUCOSE 115 mg/dL (74-106); POTASSIUM 3.5 mmol/L (3.4-5.0); SODIUM 142 mmol/L (137-145); TOTAL PROTEIN 6.7 gm/dL (6.4-8.2)
[2020-06-26 00:35] LABS: C-REACTIVE PROTEIN < 0.5 mg/dL (0.0-0.9)
[2020-06-26 01:11] VITALS: BP 115/69; PULSE 66
== END ==
LOC: COL.ER 23:14
PROVIDERS: Nurse Practitioner Primary Care
DX: R11.0 Nausea (principal); R19.7 Diarrhea, unspecified; R10.31 Right lower quadrant pain; R10.32 Left lower quadrant pain; F31.9 Bipolar disorder, unspecified; F41.9 Anxiety disorder, unspecified; F17.200 Nicotine dependence, unspecified, uncomplicated; Z32.02 Encounter for pregnancy test, result negative; Z90.49 Acquired absence of other specified parts of digestive tract; Z90.710 Acquired absence of both cervix and uterus; Z90.89 Acquired absence of other organs
CPT/HCPCS: J7030

== ENCOUNTER 2020-09-18 21:42 | Emergency (ER) | payer MEDICARE ==
[~2020-09-18] VITALS: Ht 160 cm; Wt 68.2 kg
[2020-09-18 21:50] VITALS: TEMP 98.2
[2020-09-18 22:40] VITALS: BP 128/68; PULSE 67
== END 2020-09-18 22:45 | disposition home or self-care (01) ==
LOC: COL.ER 21:42
DX: F43.20 Adjustment disorder, unspecified (principal); F31.9 Bipolar disorder, unspecified; F41.9 Anxiety disorder, unspecified; F90.9 Attention-deficit hyperactivity disorder, unspecified type; F43.10 Post-traumatic stress disorder, unspecified
CPT/HCPCS: J1885; J2060

== ENCOUNTER 2020-10-19 20:05 | Emergency (ER) | payer MEDICARE ==
[~2020-10-19] VITALS: Ht 160 cm; Wt 63.6 kg
[2020-10-19 21:13] LABS: COLLECTION METHOD CLEAN CATCH
[2020-10-19 21:15] LABS: BASO % 0.5 % (0.0-2.0); EOS # 0.2 (0.0-0.7); EOS % 1.9 % (0-4.0); GRAN # 3.3 (1.4-6.5); GRAN % 42.1 % (42.2-75.2); HEMATOCRIT 39.4 % (37.0-47.0); HEMOGLOBIN 13.1 g/dl (12.5-16.0); LYMPH # 3.9 (1.2-3.4); LYMPH % 49.5 % (20.0-51.0); MEAN CELL VOLUME 91 fl (80.0-100.0); MEAN CORPUSCULAR HEMOGLOBIN 30 pg (27.0-31.0); MEAN CORPUSCULAR HGB CONC 33 g/dl (33.0-37.0); MEAN PLATELET VOLUME 9.3 fl (7.4-10.4); MONO # 0.5 (0.1-0.6); MONO % 5.9 % (1.7-9.3); PLATELET COUNT 252 K/mm3 (130-400); RED BLOOD COUNT 4.33 M/mm3 (4.10-5.30); REDCELL DISTRIBUTION WIDTH-CV 11.8 % (11.5-14.5)
[2020-10-19 21:19] LABS: MUCOUS Present /lpf; PH 5 (5-8); SQUAMOUS EPITHELIAL 0-2 /hpf; URINE APPEARANCE Hazy; URINE BACTERIA None Seen /hpf; URINE BILIRUBIN Negative (NEGATIVE); URINE BLOOD Negative (NEGATIVE); URINE COLOR Yellow; URINE GLUCOSE Negative (NEGATIVE); URINE KETONE Negative (NEGATIVE); URINE LEUKOCYTE ESTERASE 1+ (NEGATIVE); URINE NITRATE Negative (NEGATIVE); URINE PROTEIN(semi-quant) Negative (NEGATIVE); URINE UROBILINOGEN Negative (NEGATIVE)
[2020-10-19 21:28] LABS: ALANINE AMINOTRANSFERASE 14 U/L (4-34); ALBUMIN 4.1 gm/dL (3.5-5.0); ALKALINE PHOSPHATASE 43 U/L (50-136); ANION GAP 6 mmol/L (7-16); AST,SGOT 23 U/L (15-37); BILIRUBIN,TOTAL 0.2 mg/dL (0.0-1.0); BLOOD UREA NITROGEN 9 mg/dL (7-17); CALCIUM 9.4 mg/dL (8.4-10.2); CARBON DIOXIDE 31 mmol/L (22-30); CHLORIDE 106 mmol/L (98-107); CREATININE, serum 0.53 (0.52-1.25); GLUCOSE 100 mg/dL (74-106); LIPASE 54 U/L (23-300); POTASSIUM 3.3 mmol/L (3.4-5.0); SODIUM 143 mmol/L (137-145)
[2020-10-19 21:30] LABS: C-REACTIVE PROTEIN < 0.5 mg/dL (0.0-0.9)
[2020-10-19] MEDS ORDERED: CEFTIN 250250 MG/TAB PO (22:28)
[2020-10-19 22:53] VITALS: BP 129/76; PULSE 76; TEMP 98.4
== END 2020-10-19 22:53 | disposition home or self-care (01) ==
LOC: COL.ER 20:05
PROVIDERS: Emergency Medicine
DX: R19.7 Diarrhea, unspecified (principal); E87.6 Hypokalemia; N39.0 Urinary tract infection, site not specified; F31.9 Bipolar disorder, unspecified; F41.9 Anxiety disorder, unspecified; G89.29 Other chronic pain; F43.10 Post-traumatic stress disorder, unspecified; F17.210 Nicotine dependence, cigarettes, uncomplicated
CPT/HCPCS: J2060; J2405; J7030

== ENCOUNTER 2021-01-03 12:31 | Emergency (ER) | payer MEDICARE, MEDICAID ==
[~2021-01-03] VITALS: Ht 160 cm; Wt 68.2 kg
[2021-01-03 12:39] VITALS: BP 151/96; TEMP 99.1
[2021-01-03] MEDS ORDERED: PREDNISONE20 MG PO (13:11)
[2021-01-03 13:29] VITALS: PULSE 68
== END 2021-01-03 13:30 | disposition home or self-care (01) ==
LOC: COL.ER 12:31
DX: J02.9 Acute pharyngitis, unspecified (principal); R03.0 Elevated blood-pressure reading, without diagnosis of hypertension; F31.9 Bipolar disorder, unspecified; F41.9 Anxiety disorder, unspecified; F43.10 Post-traumatic stress disorder, unspecified; G89.29 Other chronic pain; M54.2 Cervicalgia; F17.210 Nicotine dependence, cigarettes, uncomplicated; Z79.899 Other long term (current) drug therapy

== ENCOUNTER 2021-02-06 20:33 | Emergency (ER) | payer MEDICARE, MEDICAID | END 2021-02-06 21:25 | disposition left against medical advice (07) | LOC: COL.ER 20:33 | DX: R69 Illness, unspecified (principal) ==

== ENCOUNTER 2021-02-18 19:15 | Emergency (ER) | payer MEDICARE, MEDICAID ==
[~2021-02-18] VITALS: Ht 160 cm; Wt 68.2 kg
[2021-02-18 19:24] VITALS: TEMP 98.3
[2021-02-18] MEDS ORDERED: FLEXERIL 1010 MG/TAB PO (19:57)
[2021-02-18] MEDS ORDERED: NORCO 325 MG-51 TAB PO (19:57)
[2021-02-18 20:29] VITALS: BP 103/71; PULSE 74
== END 2021-02-18 20:29 | disposition home or self-care (01) ==
LOC: COL.ER 19:15
DX: S93.401A Sprain of unspecified ligament of right ankle, initial encounter (principal); S93.402A Sprain of unspecified ligament of left ankle, initial encounter; S83.91XA Sprain of unspecified site of right knee, initial encounter; M54.2 Cervicalgia; F31.9 Bipolar disorder, unspecified; F41.9 Anxiety disorder, unspecified; F43.10 Post-traumatic stress disorder, unspecified; F17.200 Nicotine dependence, unspecified, uncomplicated; Z79.899 Other long term (current) drug therapy; W19.XXXA Unspecified fall, initial encounter
CPT/HCPCS: J1885; J2360

== ENCOUNTER 2021-03-30 09:08 | Emergency (ER) | payer MEDICARE, MEDICAID ==
[~2021-03-30] VITALS: Ht 160 cm; Wt 69.5 kg
[2021-03-30 09:14] VITALS: BP 140/92; PULSE 74; TEMP 97.7
[2021-03-30] MEDS ORDERED: FLEXERIL 1010 MG/TAB PO (09:40)
== END 2021-03-30 09:59 | disposition home or self-care (01) ==
LOC: COL.ER 09:08
DX: S46.001A Unspecified injury of muscle(s) and tendon(s) of the rotator cuff of right shoulder, initial encounter (principal); G89.29 Other chronic pain; F31.9 Bipolar disorder, unspecified; F41.9 Anxiety disorder, unspecified; F43.10 Post-traumatic stress disorder, unspecified; Z79.899 Other long term (current) drug therapy; W01.0XXA Fall on same level from slipping, tripping and stumbling without subsequent striking against object, initial encounter

== ENCOUNTER 2021-05-04 19:19 | Emergency (ER) | payer MEDICARE, MEDICAID ==
[~2021-05-04] VITALS: Ht 160 cm; Wt 72.7 kg
[2021-05-04 19:53] VITALS: TEMP 97.2
[2021-05-04] MEDS ORDERED: FLEXERIL 1010 MG/TAB PO (21:20)
[2021-05-04] MEDS ORDERED: NAPROSYN500 MG PO (21:20)
[2021-05-04 22:10] VITALS: BP 122/78; PULSE 76
== END 2021-05-04 22:10 | disposition home or self-care (01) ==
LOC: COL.ER 19:19
DX: S49.91XA Unspecified injury of right shoulder and upper arm, initial encounter (principal); W19.XXXA Unspecified fall, initial encounter
CPT/HCPCS: J1885

== ENCOUNTER 2021-09-15 20:28 | Emergency (ER) | payer MEDICARE, MEDICAID ==
[~2021-09-15] VITALS: Ht 160 cm; Wt 72.7 kg
[2021-09-15 20:36] VITALS: TEMP 97.2
[2021-09-15] MEDS ORDERED: FIORICET 325 MG1 TA1 PO (22:29)
[2021-09-15 22:43] VITALS: BP 133/74; PULSE 82
== END 2021-09-15 22:43 | disposition home or self-care (01) ==
LOC: COL.ER 20:28
DX: G44.209 Tension-type headache, unspecified, not intractable (principal); F17.200 Nicotine dependence, unspecified, uncomplicated
CPT/HCPCS: J1885; J2060

== ENCOUNTER 2021-11-10 19:17 | Emergency (ER) | payer MEDICARE, MEDICAID ==
[~2021-11-10] VITALS: Ht 160 cm; Wt 72.7 kg
[~2021-11-10 19:17] MED LIST changes: +FIORICET 325 MG1 TA1 PO
[2021-11-10 19:28] VITALS: TEMP 98.3
[2021-11-10] MEDS ORDERED: IBU800 M1 PO (19:56)
[2021-11-10 20:14] VITALS: BP 133/87; PULSE 78
== END 2021-11-10 20:19 | disposition home or self-care (01) ==
LOC: COL.ER 19:17
DX: M54.50 Low back pain, unspecified (principal); F17.200 Nicotine dependence, unspecified, uncomplicated

== ENCOUNTER 2021-12-19 21:30 | Emergency (ER) | payer MEDICARE, MEDICAID ==
[~2021-12-19] VITALS: Ht 160 cm; Wt 74.4 kg
[~2021-12-19 21:30] MED LIST changes: +IBU800 M1 PO
[2021-12-19 21:35] VITALS: TEMP 97.2
[2021-12-19] MEDS ORDERED: FLEXERIL 1010 MG/TAB PO (22:16)
[2021-12-19 22:44] VITALS: BP 126/86; PULSE 78
== END 2021-12-19 22:44 | disposition home or self-care (01) ==
LOC: COL.ER 21:30
DX: G44.209 Tension-type headache, unspecified, not intractable (principal); M62.838 Other muscle spasm; F17.200 Nicotine dependence, unspecified, uncomplicated
CPT/HCPCS: J1885; J2405

== ENCOUNTER 2022-03-02 15:08 | Emergency (ER) | payer MEDICARE, MEDICAID ==
[~2022-03-02] VITALS: Ht 160 cm; Wt 71.8 kg
[2022-03-02 15:14] VITALS: TEMP 97.6
[2022-03-02] MEDS ORDERED: MOBIC 7.5MG7.5 MG PO (16:29)
[2022-03-02 16:38] VITALS: BP 114/76; PULSE 77
== END 2022-03-02 16:38 | disposition home or self-care (01) ==
LOC: COL.ER 15:08
DX: M79.672 Pain in left foot (principal); F17.210 Nicotine dependence, cigarettes, uncomplicated; W22.8XXA Striking against or struck by other objects, initial encounter; X50.1XXA Overexertion from prolonged static or awkward postures, initial encounter

== ENCOUNTER 2023-05-17 16:18 | Emergency (ER) | payer MEDICARE, MEDICAID ==
[~2023-05-17] VITALS: Ht 160 cm; Wt 77.3 kg
[~2023-05-17 16:18] MED LIST changes: +MOBIC 7.5MG7.5 MG PO; +PROTONIX 40MG T40 MG PO; +REGLAN 10MG10 MG/TAB PO
[2023-05-17 16:23] VITALS: TEMP 97.9
[2023-05-17 17:00] LABS: COLLECTION METHOD CLEAN CATCH
[2023-05-17 17:11] LABS: URINE COLOR Yellow (YELLOW)
[2023-05-17 17:12] LABS: URINE APPEARANCE Hazy (CLEAR/HAZY)
[2023-05-17 17:13] LABS: URINE BLOOD TRACE-LYSED (NEGATIVE); URINE GLUCOSE Negative (NEGATIVE); URINE KETONE Negative (NEGATIVE); URINE NITRATE Negative (NEGATIVE); URINE PROTEIN(semi-quant) Negative (NEGATIVE); URINE UROBILINOGEN 0.2 E.U/dL (0.2-1.0)
[2023-05-17 17:14] LABS: SQUAMOUS EPITHELIAL 0-2 /hpf (0-10); URINE BACTERIA Rare /hpf (NONE SEEN)
[2023-05-17] MEDS ORDERED: ZOFRAN ODT4 MG PO (17:51)
[2023-05-17] MEDS ORDERED: CIPRO 500MG TA500 MG PO (17:51)
[2023-05-17 18:06] VITALS: BP 144/104; PULSE 84
== END 2023-05-17 18:09 | disposition home or self-care (01) ==
LOC: COL.ER 16:18
PROVIDERS: Personal Emergency Response Attendant
DX: N39.0 Urinary tract infection, site not specified (principal); F17.210 Nicotine dependence, cigarettes, uncomplicated; Z90.49 Acquired absence of other specified parts of digestive tract; Z98.890 Other specified postprocedural states; Z88.2 Allergy status to sulfonamides; Z79.2 Long term (current) use of antibiotics

== ENCOUNTER 2024-01-25 14:29 | Emergency (ER) | payer MEDICAID ==
[~2024-01-25] VITALS: Ht 160 cm; Wt 72.7 kg
[~2024-01-25 14:29] MED LIST changes: +CIPRO 500MG TA500 MG PO
[2024-01-25 14:40] VITALS: TEMP 97.8
[2024-01-25] MEDS ORDERED: NS 1,000 ML IV ONE (15:45)
[2024-01-25] MEDS ORDERED: Ondansetron 4 MG/2 ML VIAL IV PRN (15:45)
[2024-01-25 15:59] LABS: BASO % 0.4 % (0.0-2.0); EOS # 0.2 K/mm3 (0.0-0.7); EOS % 1.8 % (0.0-4.0); GRAN # 4.7 K/mm3 (1.4-6.5); GRAN % 55.7 % (42.2-75.2); HEMATOCRIT 40.6 % (37.0-47.0); HEMOGLOBIN 13.6 g/dl (12.5-16.0); LYMPH # 3.1 K/mm3 (1.2-3.4); LYMPH % 37.2 % (20.0-51.0); MEAN CELL VOLUME 88 fl (80.0-100.0); MEAN CORPUSCULAR HEMOGLOBIN 29 pg (27-31); MEAN CORPUSCULAR HGB CONC 34 g/dl (33.0-37.0); MEAN PLATELET VOLUME 9.3 fl (7.4-10.4); MONO # 0.4 K/mm3 (0.1-0.6); MONO % 4.5 % (1.7-9.3); PLATELET COUNT 267 K/mm3 (130-400); RED BLOOD COUNT 4.63 M/mm3 (4.10-5.30)
[2024-01-25] MEDS ORDERED: Ibuprofen 600 MG TAB PO ONE (16:15)
[2024-01-25 16:23] LABS: COLLECTION METHOD CLEAN CATCH
[2024-01-25 16:47] LABS: URINE APPEARANCE TURBID (CLEAR/HAZY); URINE BLOOD NEGATIVE (NEGATIVE); URINE COLOR YELLOW (YELLOW); URINE GLUCOSE NEGATIVE (NEGATIVE); URINE KETONE NEGATIVE (NEGATIVE); URINE NITRATE NEGATIVE (NEGATIVE); URINE PROTEIN(semi-quant) NEGATIVE (NEGATIVE); URINE UROBILINOGEN 0.2 E.U/dL (0.2-1.0)
[2024-01-25 16:55] LABS: ALBUMIN 3.9 g/dL (3.5-5.0); BILIRUBIN,TOTAL 0.3 mg/dL (0.2-1.2); CALCIUM 9.7 mg/dL (8.4-10.2); CREATININE, serum 0.66 mg/dL (0.57-1.11); POTASSIUM 3.7 mEq/L (3.5-4.5); TOTAL PROTEIN 6.7 g/dl (6.2-8.1)
[2024-01-25 18:25] VITALS: BP 124/78; PULSE 64
== END 2024-01-25 18:25 | disposition home or self-care (01) ==
LOC: COL.ER 14:29
PROVIDERS: Personal Emergency Response Attendant
DX: R42 Dizziness and giddiness (principal)
CPT/HCPCS: J2405; J7030